=== PATIENT | female | born 1950 | race Caucasian/White ===

== ENCOUNTER 2024-06-01 06:19 | Day surgery (SDC) | payer OTHER ==
[~2024-06-01] VITALS: Ht 152.4 cm; Wt 49.9 kg
[2024-06-01] MEDS ORDERED: MIDAZOLAM HCL 5 MG/5 ML VIAL ONE (08:19)
[2024-06-01] MEDS ORDERED: MEPERIDINE 100 MG INJ. 100 MG/ML VIAL ONE (08:19)
[2024-06-01] MEDS ORDERED: fentaNYL CITRATE/PF 100 MCG/2 ML AMP ONE (08:19)
[2024-06-01 11:25] VITALS: O2SAT 98
[2024-06-01 11:54] VITALS: BP_SYST 120; PULSE 78; RESP 16
== END 2024-06-01 09:44 | disposition home or self-care (01) ==
LOC: SDS 06:19 → SMU 06:21 → SDS 09:44
PROVIDERS: ATTEND Internal Medicine
DX: Z12.11 Encounter for screening for malignant neoplasm of colon (principal); K57.30 Diverticulosis of large intestine without perforation or abscess without bleeding; K64.8 Other hemorrhoids; E11.9 Type 2 diabetes mellitus without complications; E78.5 Hyperlipidemia, unspecified; Z90.710 Acquired absence of both cervix and uterus; Z90.49 Acquired absence of other specified parts of digestive tract; Z79.899 Other long term (current) drug therapy; Z88.8 Allergy status to other drugs, medicaments and biological substances; Z87.891 Personal history of nicotine dependence; Z86.0100 Personal history of colon polyps, unspecified
CPT/HCPCS: 45378; 82948; 99152; G0378; J2250; J2175; J3010